=== PATIENT | female | born 1985 ===

== ENCOUNTER 2019-10-11 09:46 | Outpatient (CLI) | payer MEDICAID | END 2019-10-11 23:59 | disposition home or self-care (01) | LOC: RAD 09:46 | PROVIDERS: ATTEND Family Medicine | DX: R56.9 Unspecified convulsions (principal) | CPT/HCPCS: 95816 ==

== ENCOUNTER 2021-10-12 16:25 | Emergency (ER) | payer MEDICAID ==
[~2021-10-12] VITALS: Ht 149.9 cm; Wt 63.6 kg
[2021-10-12 17:50] VITALS: BP 132/85
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
== END 2021-10-12 20:15 | disposition home or self-care (01) ==
LOC: ER 16:26
DX: M54.2 Cervicalgia (principal); X58.XXXA Exposure to other specified factors, initial encounter; Y93.89 Activity, other specified; Y92.89 Other specified places as the place of occurrence of the external cause; Y99.8 Other external cause status
CPT/HCPCS: 72125; 99284; L0172

== ENCOUNTER 2021-12-11 15:05 | Emergency (ER) | payer MEDICAID ==
[~2021-12-11] VITALS: Ht 149.9 cm; Wt 65.9 kg
[2021-12-11 15:23] VITALS: BP 168/81
[2021-12-11 16:40] LABS: URINE HCG NEGATIVE (NEG)
[2021-12-11 16:46] LABS: CLARITY,URINE SLIGHTLY CLOUDY (Clear); COLOR,URINE YELLOW (Yellow); GLUCOSE, URINE NEGATIVE (Neg); KETONES,URINE NEGATIVE (Neg); LEUKOCYTE ESTERASE ,URINE NEGATIVE (Neg); NITRITES, URINE NEGATIVE (Neg); OCCULT BLOOD,URINE LARGE (Neg); PROTEIN,URINE NEGATIVE (Neg); UROBILINOGEN,URINE 0.2 E.U/dL (0.2-1.0)
[2021-12-11 16:59] LABS: UA COLLECTION TYPE CLN CATCH MIDSTREAM
[2021-12-11 17:00] LABS: SQUAMOUS EPITHELIAL CELL,UR MANY /LPF (FEW)
[2021-12-11 17:01] LABS: BACTERIA,URINE FEW /HPF (Neg); RBC,URINE 0-2 /HPF (0-2); WBC,URINE 0-4 /HPF (0-4)
== END 2021-12-11 18:15 | disposition home or self-care (01) ==
LOC: ER 15:06
DX: Z00.00 Encounter for general adult medical examination without abnormal findings (principal); K62.89 Other specified diseases of anus and rectum
CPT/HCPCS: 36415; 81001; 81025; 87491; 99283

== ENCOUNTER 2022-11-17 13:21 | Emergency (ER) | payer MEDICAID ==
[~2022-11-17] VITALS: Ht 149.9 cm; Wt 68.8 kg
[2022-11-17 13:29] VITALS: BP 131/90; PULSE 100; RESP 18; TEMP 99.1; O2SAT 100
[2022-11-17] MEDS ORDERED: BUPR1FIL3 SL (13:58)
[2022-11-17] MEDS ORDERED: buprenorphine/naloxone 8MG-2MG SUBlingual film SL SCH ×2 (14:05→21:00)
[2022-11-17] MEDS: buprenorphine/naloxone 8MG-2MG SUBlingual film SL ONE ×2 (14:10→14:17)
== END 2022-11-17 14:23 | disposition home or self-care (01) ==
LOC: ER 13:22
DX: F11.90 Opioid use, unspecified, uncomplicated (principal)
CPT/HCPCS: 99283